=== PATIENT | female | born 2005 | race Caucasian/White ===

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

== ENCOUNTER 2024-04-24 10:43 | Outpatient (CLI) | payer BC, SELFPAY ==
--- NOTE | ~2024-04-24 | US_ITS ---
EXAMINATION: US pelvic complete INDICATION: Amenorrhea Comparison:No prior studies for comparison. TECHNIQUE: Multiple transabdominal sonographic images of the pelvis performed. FINDINGS: The uterus measures 6.8 x 2.5 x 3.8 cm. The endometrial complex measures 5 mm. The right ovary measures 2.9 x 1.7 x 2.6 cm and the left ovary measures 3 x 1.8 x 2.4 cm. There are small follicles in each ovary. Normal doppler signal in both ovaries. There is no free fluid in the pelvis. There are no abnormal masses seen on either side. IMPRESSION: 1. Unremarkable pelvic ultrasound. Reviewed, dictated and finalized at location B.
== END 2024-04-24 10:44 ==
LOC: MICIMG 10:44
PROVIDERS: PCP Nurse Practitioner Women's Health; Visit Provider Nurse Practitioner Women's Health
DX: N91.2 Amenorrhea, unspecified (principal)
CPT/HCPCS: 76856

== ENCOUNTER 2024-06-21 21:33 | Emergency (ER) | payer BC, SELFPAY ==
--- NOTE | ~2024-06-21 | CT_ITS ---
EXAMINATION: CT abdomen pelvis w con DATE: 06/21/2024 23:52 INDICATION: Lower abdominal pain. TECHNIQUE: Computed tomography (CT) of the abdomen and pelvis was performed with 100 mL Omnipaque 350 intravenous contrast. Automated exposure control and iterative reconstruction technique were employe d. The dose-length product was 195.71 mGy-cm. COMPARISON: Pelvis ultrasound 04/24/2024 FINDINGS: The visualized portions of lung bases are clear without pneumonia or pleural effusion. The heart size is normal. No pericardial effusion. The liver, gallbladder, spleen, pancreas, adrenal glan ds, and kidneys are normal. There is an intrauterine device in expected position. There are no dilate d loops of bowel. The appendix is normal. There are no pathologically enlarged lymph nodes. There is no free intraperitoneal fluid. There is a tampon in the vagina. There is mild lumbar spondylosis. IMPRESSION: 1. No etiology for the patient's symptoms. Reviewed, dictated and finalized at location A.
[2024-06-21 21:53] VITALS: BP 141/94; PULSE 146; RESP 16; TEMP 36.6; O2SAT 100
--- NOTE | 2024-06-21 21:54 | ECG_ITS ---
Test Date: 2024-06-21 21:58:48 Measurements Intervals [place] Rate: 89 P: 73 ID: [id number] QRS: 69 QRSD: 78 T: 77 QT: 325 QTc: 397 Interpretive Statements SINUS RHYTHM WITH SINUS ARRHYTHMIA MINIMAL ST DEPRESSION- ANTEROLAT/INF LEADS BASELINE ARTIFACT- I, II, III, AVR, AVL, AVF BORDERLINE ECG No previous ECG available for comparison Electronically Signed On 06-22-2024 06:49:39 CDT by Jose J Jones D.O.
[2024-06-21 22:12] VITALS: PULSE 120; O2SAT 100
[2024-06-21 22:12] LABS: BEDSIDEPREGUCG Negative
[2024-06-21 22:18] LABS: Basophils Absolute Auto 0.1 K/mm3 (0.0-0.1); Basophils Percent Auto 0.5 % (0.2-1.2); Eosinophils Absolute Auto 0.1 K/mm3 (0-0.3); Eosinophils Percent Auto 0.8 % (0-4.4); Hematocrit 38.3 % (37.0-47.0); Hemoglobin 12.9 g/dL (12.0-15.0); Immature Granulocyte Absolute 0.04 K/mm3 (0.00-0.031); Immature Granulocyte Percent A 0.3 % (0-0.5); Lymphocytes Absolute Auto 4.23 K/mm3 (0.9-3.2); Lymphocytes Percent Auto 28.6 % (18.3-44.2); Mean Corpuscular HGB Conc 33.7 g/dl (32-36); Mean Corpuscular Hemoglobin 30.3 pg (26-34); Mean Corpuscular Volume 89.9 fl (80-100); Mean Platelet Volume 9.2 fl (7.4-10.4); Monocytes Absolute Auto 1.4 K/mm3 (0.1-0.6); Monocytes Percent Auto 9.4 % (2.6-8.5); Neutrophils Absolute Auto 8.9 K/mm3 (1.3-6.7); Neutrophils Percent Auto 60.4 % (45.5-73.1); Platelet Count Result 325 k/mm3 (150-375); Red Blood Count 4.26 M/mm3 (4.2-5.4); White Blood Count 14.8 K/mm3 (4.5-10.0)
[2024-06-21 22:23] LABS: Add Urine Microscopic? YES; Appearance Urine Clear (Clear); Bacteria Urine None Seen /hpf; Bilirubin Urine Negative (Negative); Blood Urine Negative (Negative); Color Urine Yellow (Yellow); Glucose Urine UA Negative (Negative); Ketones Urine Negative (Negative); Leukocyte Esterase Ur Trace LEU/UL (Negative); Nitrate Urine Negative (Negative); Non Pathogenic Casts 0-2; Protein Urine Negative (Negative); RBC Urine 0-2 /hpf (0-2); Specific Grav Ur 1.011 (1.001-1.035); Squamous Epithelial Cell Urine Occasional /hpf (Few); Urobilinogen Urine 0.2 mg/dL (<2.0); WBC Urine 0-5 /hpf (0-3)
[2024-06-21 22:24] VITALS: BP 134/74; PULSE 100; RESP 14; TEMP 36.9; O2SAT 100
[2024-06-21 22:28] LABS: Alanine Aminotransferase 23 U/L (6-35); Albumin Level 4.8 g/dL (3.7-5.6); Alkaline Phosphatase 72 U/L (45-116); Anion Gap 10 mmol/L (4-12); Aspartate Amino Transferase 32 U/L (14-36); Bilirubin,Total 0.6 mg/dL (0.2-1.3); Blood Urea Nitrogen 13 mg/dL (8-21); Calcium 9.9 mg/dL (8.9-10.7); Carbon Dioxide 26 mmol/L (22-30); Chloride 103 mmol/L (98-107); Estimated CRCL calculation 81 ml/min; Estimated Glomerular Filt Rate > 60; Glucose 103 mg/dL (65-110); Lipase 84 U/L (23-300); Potassium 3.9 mmol/L (3.4-5.0); Sodium 139 mmol/L (134-143)
--- NOTE | 2024-06-21 23:05 | ED.ABDPAIN ---
HPI - Abdominal Pain General Chief Complaint: Abdominal Pain Stated Complaint: abd pain Time Seen by Provider: 06/21/24 22:30 History of Present Illness HPI narrative: Pt is a 18-year-old female who presents to the ER with lower abdominal pain. She reports she had a copper IUD placed on 05/31/2024. Since then she has had two heavy periods, during one of them she filled two super tampons in four hours. Pt reports the pain/cramps associated with the bleeding have become unbearable over the past 2-3 days. She has taken Ibuprofen/Midol to treat the pain with minimal relief. Pt endorses nausea when she experiences the pain. She denies shortness of breath, chest pain, noticeable blood in her urine, or pain in her lower extremities. Pt also reports she has a history of SVT and is followed by a assistant winemaker but is not on medication to treat it. MD elicited complaint: abdominal pain Pertinent past history: other (IUD placement) Location: pelvis and groin Severity: severe Quality: cramping and aching Related Data Home Medications Medication Instructions Recorded Confirmed etonogestrel 68 mg subdermal 1 implant subdermal ONCE 05/01/22 05/01/22 implant (Nexplanon) hyoscyamine 0.15 mg tablet mg PO 05/01/22 norethindrone 1 mg-ethinyl 1 tablet PO DAILY 05/01/22 05/01/22 estradiol 10 mcg (24)-iron 10 mcg(2) tablet (Lo Loestrin Fe) Allergies Allergy/AdvReac Type Severity Reaction Status Date / Time diphenhydramine Allergy Unknown Verified 06/21/24 21:34 [From Benteril] Review of Systems Review of Systems: All systems reviewed & are unremarkable except as noted in HPI and below PMFSH Past Medical History Medical History COVID-19 08/2021 Melanoma Surgical History Surgical History H/O melanoma excision Social History Social History Smoking status: Current every day smoker Tobacco type: e-cigarettes/vaping Alcohol intake: never Substance use: never Living arrangements: with family Gender identity (if verbalized by the patient): Female Exam Narrative: GENERAL: Well appearing, well-nourished, non-toxic, in no acute distress. RESPIRATORY: Airway patent, respirations nonlabored. Clear to auscultation bilaterally, no rales, rhonchi, wheezing. CARDIOVASCULAR: Regular rate and rhythm without murmurs, rubs, or gallops. Peripheral pulses 2+ and equal bilaterally. ABDOMINAL: Soft, tender bilateral lower quadrants, nondistended, no hepatosplenomegaly. Normoactive BS. MUSCULOSKELETAL: Moves all extremities. Strength/ROM intact without gross deformities. SKIN: Warm, dry, normal color. No rashes. NEURO: A&O X3. Speech clear. Cranial nerves II-XII grossly intact. Steady gait. No ataxic movements. PSYCHIATRIC: Appropriate mood and affect. Normal interaction. Course Vital Signs Vital signs: Vital Signs Temperature 36.6 C 06/21/24 21:53 Pulse Rate 146 H 06/21/24 21:53 Respiratory Rate 16 06/21/24 21:53 Blood Pressure 141/94 H 06/21/24 21:53 Pulse Oximetry 100 06/21/24 21:53 Oxygen Delivery Room Air 06/21/24 21:53 Temperature 37.0 C 06/22/24 00:19 Pulse Rate 111 H 06/22/24 00:19 Respiratory Rate 16 06/22/24 00:19 Blood Pressure 126/74 06/22/24 00:19 Pulse Oximetry 100 06/22/24 00:19 Oxygen Delivery Room Air 06/21/24 21:53 MDM - Abdominal Pain MDM Narrative Medical decision making narrative: Pt is a 18-year-old female who presents to the ER with lower abdominal pain. She reports she had a copper IUD placed on 05/31/2024. Since then she has had two heavy periods, during one of them she filled two super tampons in four hours. Pt reports the pain/cramps associated with the bleeding have become unbearable over the past 2-3 days. She has taken Ibuprofen/Midol to treat th
[2024-06-21] MEDS: KETOROLAC 15 MG/ML VIAL (*BKC) IV PUSH (23:15)
[2024-06-21] MEDS: SODIUM CHLORIDE 0.9% IV 1,000 ML 999 ML IV CONT (23:15)
[2024-06-21 23:52] LABS: INR 1.1; Prothrombin Time 14.6 Seconds (11.1-14.7)
[2024-06-21 23:53] LABS: Lactic Acid Reflex 1.3 mmol/L (0.7-2.0); Partial Thromboplastin Time 36.5 Seconds (22.3-36.8)
[2024-06-21 23:55] LABS: CRP < 0.5 mg/dL (<1.0)
[2024-06-22 00:19] VITALS: BP 126/74; PULSE 111; RESP 16; TEMP 37; O2SAT 100
[2024-06-22 02:47] VITALS: BP 105/60; PULSE 86; RESP 15; O2SAT 98
== END 2024-06-22 02:49 | disposition home or self-care (01) ==
PROVIDERS: Emergency Medicine; Emergency Provider Registered Nurse
DX: R10.30 Lower abdominal pain, unspecified (principal); Z97.5 Presence of (intrauterine) contraceptive device; Z85.820 Personal history of malignant melanoma of skin; F17.290 Nicotine dependence, other tobacco product, uncomplicated
CPT/HCPCS: 36415; 74177; 80053; 81001; 81025; 83605; 83690; 85025; 85610; 85730; 86140; 87040; 93005; 96361; 96374; 99284; J1885; J7030; Q9967